=== PATIENT | female | born 1960 | race Caucasian/White ===

== ENCOUNTER → 2016-10-02 | Outpatient (CLI) | payer OTHER ==
--- NOTE | 2016-10-03 06:31 | DI ---
CT ABDOMEN/PELVIS W/O CONTRAST,10/02/2016 7:53 AM: Clinical History: Right lower quadrant abdominal pain Previous Exam: None at this facility. Findings: Multiple helically acquired CT images are obtained through the abdomen and pelvis without contrast. T here are multiple simple cyst noted within the liver and several other subcentimeter hypodensities wh ich likely represent simple cysts. The gallbladder is unremarkable. The spleen, adrenals and pancreas are unremarkable. Peripheral vascu lar calcifications are seen. The appendix is normal. Moderate right stool is seen throughout the colon. The urinary bladder is unremarkable. The uterus and ovaries are unremarkable. Mild facet hypertrophy is seen. There is grade 1 anterolisthesis of L4 on L5. Impression: No acute abdominal pathology. No evidence of obstructive uropathy.
== END ==
LOC: CT 07:48
PROVIDERS: ATTEND Nurse Practitioner Family
DX: R10.31 Right lower quadrant pain (principal)
CPT/HCPCS: 74176

== ENCOUNTER → 2016-10-11 | Outpatient (CLI) | payer OTHER ==
--- NOTE | 2016-10-11 09:33 | DI ---
US PELVIC COMPLETE (NON OB),10/11/2016 8:16 AM: Clinical History: Right lower quadrant abdominal pain. Previous Exam: CT abdomen pelvis performed October 02, 2016 Findings: Multiple grayscale and color Doppler sonographic images are obtained through the pelvis and demonstra te a normal-appearing uterus measuring 6.8 x 5.7 x 5.1 cm with an endometrial stripe measuring 6 mm. The right ovary measures 2.2 x 1.2 x 1.1 cm and the left ovary measures 2.6 x 1.4 x 1.3 cm. There is normal venous and arterial Doppler waveforms obtained within both ovaries. Within the endometrial stripe, there is a small echogenic focus without shadowing. Impression: Normal pelvic ultrasound. No findings to explain right lower quadrant pain.
== END ==
LOC: US 08:11
PROVIDERS: ATTEND Nurse Practitioner Family
DX: R10.31 Right lower quadrant pain (principal); Z72.0 Tobacco use
CPT/HCPCS: 76856

== ENCOUNTER 2016-10-27 07:53 | Day surgery (SDC) | payer OTHER ==
[~2016-10-27 07:53] MED LIST: LIDOCAINE W/ SODIUM BICARB 0.5 ML SYR ONE; Lactated Ringers 1,000 ML PRIMARY IV ONE; MIDAZOLAM 5 MG/1 ML ONE; fentaNYL Inj 100 MCG/2 ML VIAL ONE
--- NOTE | 2016-10-27 08:46 | GEN.OPNOTE ---
Colonoscopy Procedure Note Surgery Date: 10/27/16 Preoperative Diagnosis: Colon cancer screening Postoperative Diagnosis: Colon cancer screening. Normal-appearing large intestine Procedure: Colonoscopy Surgeon: Chris Calloway MD Anesthesia Provider: Stephan Brooke CRNA Anesthesia Type: MAC Indications: Colon cancer screening Findings: Prep : Excellent Cecum : Olympus video colonoscopy scope inserted her with the cecum. Ileocecal valve clearly identified. Penicillin office identified. Patient normal- appearing cecum. Ascending : Ascending colons within normal limits no polyps tumors or cancers Transverse : Transverse colon was within normal limits no polyps tumors or cancers Sigmoid : Descending and sigmoid colon free from disease Rectum : Rectum is free from disease Digital Rectal Exam : A lubricated flexible colonoscope was inserted and passed to the blind end of the cecum. Additional Details: Next colonoscopy in 10 years
[2016-10-27 09:21] VITALS: RESP 14; TEMP 97.1
== END 2016-10-27 09:15 | disposition home or self-care (01) ==
LOC: SDSC 07:53
PROVIDERS: ATTEND Surgery
DX: Z12.11 Encounter for screening for malignant neoplasm of colon (principal); R10.31 Right lower quadrant pain
CPT/HCPCS: 45378; J2250; J3010; J7120